=== PATIENT | female | born 1945 | race Caucasian/White ===

== ENCOUNTER → 2016-11-12 | Outpatient (CLI) | payer OTHER ==
[~2016-11-12] VITALS: Ht 162.6 cm; Wt 73.2 kg
[~2016-11-12] MED LIST: ADVAIR 100/501 DISK IH; ADVAIR 250/501 DISK IH; ASCORBIC ACID100 MG PO; ASPIR-LOW81 MG PO; FISH OIL300 MG PO; LEVAQUIN750 MG PO; Levaquin PO; MONTELUKAST SOD10 MG PO; OS-CAL 500+D31 EACH PO; Oscal 500 w/Vitamin PO; PREDNISONE10 MG PO; PROAIR HFA8.5 GM IH; PROTONIX40 MG PO; PROVENTIL,2.5 MG/3 M IH; Protonix PO; RANITIDINE HCL150 MG PO; SPIRIVA1 INHALATI IH; THEO-24 100 MG100 MG PO; Tums,OsCal PO; VENTOLIN HFA18 GM IH; VITAMIN E100 UNIT PO
[2016-11-12 08:53] LABS: HEMATOCRIT 41.1 % (36.0-46.0); MCH 29.1 PG (29.0-34.0); MCHC 33.6 G/DL (30.0-36.0); MCV 86.7 FL (83-99); MEAN PLAT.VOLUME 9.4 uM^3 (9.5-12.4); PLATELET COUNT 296 K/uL (156-360); RBC DIS.WIDTH-SD 38.5 % (39-53); RED BLOOD COUNT 4.74 M/uL (3.80-5.20); WHITE BLOOD COUNT 8.8 K/uL (4.1-10.2)
[2016-11-12 09:02] LABS: PTT 27.1 (25-32)
== END | disposition home or self-care (01) ==
LOC: OPR 08:19 → EDSTATUS 08:30 → OPR 08:30
PROVIDERS: Anesthesiology
PROC: 0BBF3ZX Excision of Right Lower Lung Lobe, Percutaneous Approach, Diagnostic (ICD-10-PCS; principal; 2016-11-12)
DX: C34.31 Malignant neoplasm of lower lobe, right bronchus or lung (principal); J44.9 Chronic obstructive pulmonary disease, unspecified; Z99.81 Dependence on supplemental oxygen; E78.5 Hyperlipidemia, unspecified; E11.40 Type 2 diabetes mellitus with diabetic neuropathy, unspecified
CPT/HCPCS: 71010; 77012; 85027; 85610; 85730; 88305; 88341 TC; 88342 TC; J3010